=== PATIENT | female | born 1960 | race African-American/Black ===

== ENCOUNTER → 2024-07-15 | Day surgery (SDC) | payer MEDICAID ==
[~2024-07-15] MED LIST: AMLO10TA80 PO; ASPI-1497 PO; BIMA2.5D4 EACHEYE; DYZ MT; GABA-1180 PO; LATA2.5D14 EACHEYE; LIDOCAINE HCL/PF 1% 10 MG/ML 5ML VIAL ONE; LISI2.5T47 PO; METF-414 PO; ROSU40TA PO; SODIUM BICARBONATE 4% 2.4MEQ/5ML VIAL IV ONE
== END | disposition home or self-care (01) ==
LOC: RAD 09:37
PROVIDERS: ATTEND Surgery Surgical Oncology
DX: D05.11 Intraductal carcinoma in situ of right breast (principal); Z79.82 Long term (current) use of aspirin; Z79.899 Other long term (current) drug therapy; Z98.890 Other specified postprocedural states
CPT/HCPCS: 19281; J3490; A4648

== ENCOUNTER → 2024-07-20 | Day surgery (SDC) | payer MEDICAID ==
[~2024-07-20] VITALS: Ht 160 cm; Wt 108.0 kg
[~2024-07-20] MED LIST changes: +BUPIVACAINE HCL/PF 0.5% (5MG/ML) 10ML ONE; +CEFAZOLIN SODIUM 1000MG/VIAL ONE; +EPHEDRINE SULFATE 50MG/ML VIAL ONE; +FENTANYL CITRATE/PF 50MCG/ML 2ML VIAL ONE; +HYDROMORPHONE HCL/PF 2MG/ML INJ IV PRN; +LACTATED RINGERS 1,000 ML IV SCH; +LIDOCAINE HCL/EPINEPHRINE 1%-EPI 1:100,000 20ML VIAL ONE; -LIDOCAINE HCL/PF 1% 10 MG/ML 5ML VIAL ONE; +METHYLENE BLUE 50MG/10ML AMP IV ONE; +MIDAZOLAM HCL 2 MG/2 ML VIAL ONE; +ONDANSETRON HCL 4MG/2ML INJ ONE; +PROPOFOL 200MG/20ML VIAL IV ONE; -SODIUM BICARBONATE 4% 2.4MEQ/5ML VIAL IV ONE
[2024-07-20] MEDS: ONDANSETRON HCL 4MG/2ML INJ IV PRN (14:10)
== END | disposition home or self-care (01) ==
LOC: OR 08:01 → EDUNIT# 11:30
PROVIDERS: ATTEND Surgery Surgical Oncology
DX: D05.11 Intraductal carcinoma in situ of right breast (principal); I10 Essential (primary) hypertension; E78.5 Hyperlipidemia, unspecified; M19.90 Unspecified osteoarthritis, unspecified site; Z79.84 Long term (current) use of oral hypoglycemic drugs; Z79.82 Long term (current) use of aspirin; Z79.899 Other long term (current) drug therapy; Z98.890 Other specified postprocedural states
CPT/HCPCS: 19301; 82962; 88305; 76098; J3010; J3490 ×3; J0690; Q9968; J2250; J2405; J2704; 88307